=== PATIENT | male | born 1945 | race Asian ===

== ENCOUNTER 2020-10-04 11:09 | Day surgery (SDC) | payer MEDICARE, BC ==
[2020-10-04] VITALS (9 sets, daily range): BP systolic 110–130; BP diastolic 47–98
[~2020-10-04] VITALS: Ht 162.6 cm; Wt 66.6 kg
[2020-10-04] MEDS ORDERED: VALS80TA32 PO (11:48)
[2020-10-04] MEDS ORDERED: diphenhydrAMINE 25mg capsule PO PRN (11:50)
[2020-10-04] MEDS ORDERED: LORazepam 0.5 MG tablet PO PRN (11:50)
[2020-10-04] MEDS ORDERED: LIDOcaine/PRILOcaine 5gm cream TP ONE (11:50)
[2020-10-04] MEDS ORDERED: normal saline 1,000 ML IV SCH (11:50)
[2020-10-04] MEDS ORDERED: fentaNYL/PF 50MCG/1 ML 2ML syringe ONE (12:28)
[2020-10-04] MEDS ORDERED: verapamil 2.5 mg/ml inj IV ONE (12:28)
[2020-10-04] MEDS ORDERED: iohexol 350MG/ML 100ml bottle IV ONE (12:28)
[2020-10-04] MEDS ORDERED: midazolam 1 mg/ML 2ml injection ONE (12:28)
[2020-10-04] MEDS ORDERED: heparin 1,000unit/ml 10ml vial 10 ML ONE (12:28)
[2020-10-04] MEDS ORDERED: LIDOcaine 1% (10mg/ml)w/preservative injection 20ml MDV ONE (12:28)
[2020-10-04] MEDS ORDERED: nitroGLYCERIN-Tridil 50MG/D5W 250 ML IV ONE (12:50)
[2020-10-04] MEDS ORDERED: iohexol 350 MG/ML 50ML vial IV ONE (13:23)
[2020-10-04] MEDS ORDERED: HYDROcodone/acetaminophen 5mg/325mg tablet PO PRN (14:20)
[2020-10-04] MEDS ORDERED: ondansetron/PF 4mg/2ml inj IV PRN (14:20)
[2020-10-04] MEDS ORDERED: OXAZEpam 15mg capsule PO PRN (14:20)
[2020-10-04] MEDS ORDERED: proCHLORperazine 10 MG/2 ml inj IV PRN (14:20)
[2020-10-04] MEDS ORDERED: HYDROcodone/acetaminophen 10/325mg tab PO PRN (14:20)
== END 2020-10-04 16:40 | disposition home or self-care (01) ==
LOC: SSTAY O 11:09
PROVIDERS: ATTEND Internal Medicine Interventional Cardiology
DX: I08.0 Rheumatic disorders of both mitral and aortic valves (principal); I25.10 Atherosclerotic heart disease of native coronary artery without angina pectoris; Z87.891 Personal history of nicotine dependence; Z79.899 Other long term (current) drug therapy
CPT/HCPCS: 93005; 93458; 99152; C1769; C1894; J1644; J2001; J2250; J3010; Q9967; A4620; A5120; J3490